=== PATIENT | female | born 1965 | race Two or more races ===

== ENCOUNTER 2017-01-22 14:56 | Inpatient (IN) | payer OTHER ==
[2017-01-22 15:41] VITALS: BMI 28.0
--- NOTE | 2017-01-22 15:50 | HP ---
CIWA Score - CIWA Score Nausea/Vomitin Muscle Tremors: 4-Moderate,w/Arms Extend Anxiety: 4-Mod. Anxious/Guarded Agitation: 4-Moderately Restless Paroxysmal Sweats: 3 Orientation: 0-Oriented Tacttile Disturbances: 2-Mild Itch/Numbness/Burn Auditory Disturbances: 0-None Visual Disturbances: 0-None Headache: 2-Mild CIWA-Ar Total Score: 21 Admission ROS BHS - HPI Chief Complaint: Withdrawal sx. Allergies/Adverse Reactions: Allergies Allergy/AdvReac Type Severity Reaction Status Date / Time No Known Allergies Allergy Verified 01/22/17 15:35 History of Present Illness: 52 y/o woman with a long hx. of alcoholism is admitted for detox.Pt. has been in previous detox,denies significant sobriety. She was here yesterday,however she did not bring her methadone take home bottle to verify dose.She decided to go back home and return today. Exam Limitations: No Limitations - Ebola screening Have you traveled outside of the country in the last 21 days: No Have you had contact with anyone from an Ebola affected area: No Have you been sick,other than usual withdrawal symptoms: No Do you have a fever: No - Review of Systems Constitutional: Diaphoresis EENT: reports: No Symptoms Reported Respiratory: reports: Cough Cardiac: reports: No Symptoms Reported GI: reports: Nausea, Abdominal cramping : reports: No Symptoms Reported Musculoskeletal: reports: Back Pain Integumentary: reports: Sweating Neuro: reports: Headache, Tingling, Tremors Endocrine: reports: No Symptoms Reported Hematology: reports: No Symptoms Reported Psychiatric: reports: No Sypmtoms Reported Other Systems: Reviewed and Negative Patient History - Patient Medical History Hx Anemia: Yes (in the past not taking any meds) Hx Asthma: Yes Hx Chronic Obstructive Pulmonary Disease (COPD): No Hx Cancer: No Hx Cardiac Disorders: Yes (HEART MURMUR) Hx Congestive Heart Failure: No Hx Hypertension: Yes (ON MEDS) Hx Hypercholesterolemia: No Hx Pacemaker: No HX Cerebrovascular Accident: Yes (LEFT SIDE/SLURRY SPEECH ) Hx Seizures: Yes (WITHDRAWAL SEIZURE) Hx Dementia: No Hx Diabetes: No Hx Gastrointestinal Disorders: No Hx Liver Disease: Yes (FATTY LIVER) Hx Genitourinary Disorders: No Hx Sexually Transmitted Disorders: Yes (SYPHILIS) Hx Renal Disease (ESRD): No Hx Thyroid Disease: No Hx Human Immunodeficiency Virus (HIV): No Hx Hepatitis C: No Hx Depression: Yes Hx Suicide Attempt: No Hx Bipolar Disorder: Yes (ON MEDS) Hx Schizophrenia: No - Patient Surgical History Past Surgical History: Yes Hx Neurologic Surgery: No Hx Cataract Extraction: No Hx Cardiac Surgery: No Hx Lung Surgery: No Hx Breast Surgery: No Hx Breast Biopsy: No Hx Abdominal Surgery: No Hx Appendectomy: No Hx Cholecystectomy: No Hx Genitourinary Surgery: No Hx Section: No Hx Orthopedic Surgery: No Other Surgical History: fibroid tumors in 08/2013 Anesthesia Reaction: No - PPD History Date: 05/17/16 Results: 0MM PPD to be Administered?: No - Reproductive History Patient is a Female of Child Bearing Age (11 -55 yrs old): Yes Patient : No - Smoking Cessation Smoking history: Current every day smoker Have you smoked in the past 12 months: Yes Aproximately how many cigarettes per day: 10 Cigars Per Day: 0 Hx Chewing Tobacco Use: No Initiated information on smoking cessation: Yes 'Breaking Loose' booklet given: 01/22/17 - Substance & Tx. History Hx Alcohol Use: Yes Hx Substance Use: Yes Substance Use Type: Alcohol, Prescribed (Methadone maintenance) Hx Substance Use Treatment: Yes (Detox) - Substances Abused Alcohol Route: Oral Frequency: Daily Amount used: Vodka 1 1/2 pint Age of first use: 13 Date of Last Use: 01/22/17 Family Disease History - Family Disease History Family Disease History: Diabetes: Grandparent (MATERNAL), Father (HTN/ ALCOHOLISM), Mother (OA), Other: Father, Mother, Brother ( [place]/ COCAINE) Admission Physical Exam [facility] - Vital Signs Vital Signs: Vital Signs - 24 hr 01/22/17 15:39 Temperature 98.9 F Pulse Rate 77 Respiratory 18 Rate Blood Pressure 148/97 - Physical General Appearance: Yes: Alcohol on Breath, Tremorous, Irritable, Sweating, Anxious HEENTM: Yes: Within Normal Limits Respiratory: Yes: Chest Non-Tender, Lungs Clear, Normal Breath Sounds Neck: Yes: Supple Breast: Yes: Breast Exam Deferred Cardiology: Yes: Regular Rhythm, Regular Rate, S1, S2, Systolic Murmur (soft 1/6 ) Abdominal: Yes: Normal Bowel Sounds, Non Tender, Soft Genitourinary: Yes: Within Normal Limits Back: Yes: Within Normal Limits Extremities: Yes: Tremors Neurological: Yes: Fully Oriented, Alert Integumentary: Yes: Diaphoresis Lymphatic: Yes: Within Normal Limits - Diagnostic (1) Alcohol dependence with uncomplicated withdrawal Current Visit: Yes Status: Acute (2) GERD (gastroesophageal reflux disease) Current Visit: Yes Status: Acute Qualifiers: Esophagitis presence: without esophagitis Qualified Code(s): K21.9 - Gastro-esophageal reflux disease without esophagitis (3) Asthma Current Visit: Yes Status: Chronic Qualifiers: Asthma severity: mild intermittent Asthma complication type: uncomplicated Qualified Code(s): J45.20 - Mild intermittent asthma, uncomplicated (4) Hypertension Current Visit: Yes Status: Chronic Qualifiers: Hypertension type: essential hypertension Qualified Code(s): I10 - Essential (primary) hypertension (5) Nicotine dependence Current Visit: Yes Status: Chronic Qualifiers: Nicotine product type: cigarettes Substance use status: uncomplicated Qualified Code(s): F17.210 - Nicotine dependence, cigarettes, uncomplicated (6) Opioid dependence on agonist therapy Current Visit: Yes Status: Chronic Cleared for Admission [facility] - Detox or Rehab [facility] Level of Care: Medically Managed Detox Regimen/Protocol: Librium [facility] Breath Alcohol Content Breath Alcohol Content: 0.292 Urine Pregancy Test - Result Urine Test Results: Negative- NO Line Present Urine Drug Screen - Results Drug Screen Negative: No Urine Drug Screen Results: MTD-Methadone, TCA-Tricyclic Antidepress
[2017-01-22] MEDS ORDERED: LOPERAMIDE HCL 2 MG CAPSULE PO PRN (16:02)
[2017-01-22] MEDS ORDERED: ACETAMINOPHEN 325 MG TABLET (FP) PO PRN (16:02)
[2017-01-22] MEDS ORDERED: chlordiazePOXIDE HCL 25 MG CAPSULE PO ONE (16:02)
[2017-01-22] MEDS ORDERED: MENTHOL/PHENOL 1 EACH UD MM PRN (16:02)
[2017-01-22] MEDS ORDERED: NICOTINE POLACRILEX 2 MG GUM BC PRN (16:02)
[2017-01-22] MEDS ORDERED: MAGNESIUM HYDROX 2400MG/30ML ORAL SUSPENSION 30 ML CUP PO PRN (16:02)
[2017-01-22] MEDS ORDERED: P-EPHED 60MG/TRIPROLIDI 2.5MG TABLET PO PRN (16:02)
[2017-01-22] MEDS ORDERED: chlordiazePOXIDE HCL 25 MG CAPSULE PO PRN (16:02)
[2017-01-22] MEDS ORDERED: MAG HYDROX/AL HYDROX/SIMETH 30 ML UNIT-DOSE CUP PO PRN (16:02)
[2017-01-22] MEDS ORDERED: guaiFENesin/D-METHORPHAN HB 10 ML UNIT-DOSE CUPS PO PRN (16:02)
[2017-01-22] MEDS ORDERED: MAGNESIUM CITRATE 300 ML BOTTLE PO PRN (16:02)
[2017-01-22] MEDS ORDERED: IBUPROFEN 400 MG TABLET (FP) PO PRN (16:02)
[2017-01-22] MEDS ORDERED: ALBUTEROL SO4 6.7 GM HFA INHALER IH PRN (16:05)
[2017-01-22] MEDS: NICOTINE 21 MG/24 HOURS TOPICAL PATCH TD SCH (17:02)
[2017-01-22] MEDS: amLODIPine BESYLATE 5 MG TABLET (FP) PO SCH (17:03)
[2017-01-22] MEDS: chlordiazePOXIDE HCL 25 MG CAPSULE PO SCH ×2 (17:09→22:37)
[2017-01-22] MEDS: diphenhydrAMINE HCL 50 MG CAPSULE PO PRN (22:37)
[2017-01-22] MEDS: THIAMINE HCL 100 MG TABLET (FP) PO SCH (22:37)
[2017-01-23] MEDS: diphenhydrAMINE HCL 50 MG CAPSULE PO PRN ×2 (01:16→22:20)
[2017-01-23] MEDS: chlordiazePOXIDE HCL 25 MG CAPSULE PO SCH ×4 (05:18→22:19)
[2017-01-23] MEDS ORDERED: METHADONE HCL 10 MG TABLET PO SCH (07:30)
[2017-01-23] MEDS: METHADONE 80 MG, METHADONE 20 MG PO SCH (07:43)
[2017-01-23] MEDS ORDERED: METHADONE HCL 40 MG DISPERSABLE TABLET ONE (07:43)
[2017-01-23] MEDS ORDERED: METHADONE HCL 10 MG TABLET ONE (07:43)
[2017-01-23] MEDS ORDERED: COLLOIDAL OATMEAL 1 BAR EACH TP PRN (09:08)
--- NOTE | 2017-01-23 09:20 | CONSULT ---
[facility] Psychiatric Consult - Data Date of interview: 01/23/17 Admission source: [facility] Identifying data: This is 52 years old female with psychiatric hospitalization history, history of Bipolar disorder, intoxicated with : Alcohol and Nicotine Substance Abuse History: - Smoking Cessation. Smoking history: Current every day smoker. Have you smoked in the past 12 months: Yes. Aproximately how many cigarettes per day: 10. Cigars Per Day: 0. Hx Chewing Tobacco Use: No. Initiated information on smoking cessation: Yes. 'Breaking Loose' booklet given : 01/22/17. - Substance & Tx. History. Hx Alcohol Use: Yes. Hx Substance Use : Yes. Substance Use Type: Alcohol, Prescribed (Methadone maintenance). Hx Substance Use Treatment: Yes (Detox). - Substances Abused. Alcohol. Route : Oral. Frequency: Daily. Amount used: Vodka 1 1/2 pint. Age of first use: 13. Date of Last Use: 01/22/17 Medical History: GERD, Asthma MMTP, MHTN, History of CVA, , Anemia history Psychiatric History: Patient reports history of Bipolar Disorder with most recent psychiatric admission on 2000 at [facility], reports being stable on: Zoloft 100mg poqd,. Seroquel 200mg po bid,. Ambien 10mg po qhs Physical/Sexual Abuse/Trauma History: Denies Additional Comment: Zoloft 100mg poqd,. Seroquel 200mg po bid,. Ambien 10mg po qhs Mental Status Exam - Mental Status Exam Alert and Oriented to: Person Cognitive Function: Fair Patient Appearance: Unkempt Mood: Sad Affect: Flat Patient Behavior: Sedated Speech Pattern: Delayed Voice Loudness: Mildly Soft/Quiet Thought Process: Goal Oriented Thought Disorder: Being Controlled Hallucinations: Denies Suicidal Ideation: Denies Homicidal Ideation: Denies Insight/Judgement: Fair Sleep: Difficulty falling asleep Appetite: Weight gain Muscle strength/Tone: Mild Hypotonicity Gait/Station: Shuffling Additional Comments: Zoloft 100mg poqd,. Seroquel 200mg po bid,. Ambien 10mg po qhs Psychiatric Findings - Problem List ([place] 1, 2,3) (1) Alcohol dependence with uncomplicated withdrawal Current Visit: Yes Status: Acute (2) Nicotine dependence Current Visit: Yes Status: Chronic Qualifiers: Nicotine product type: cigarettes Substance use status: uncomplicated Qualified Code(s): F17.210 - Nicotine dependence, cigarettes, uncomplicated (3) Opioid dependence on agonist therapy Current Visit: Yes Status: Chronic (4) Alcohol dependence Current Visit: No Status: Chronic Qualifiers: Substance use status: uncomplicated Qualified Code(s): F10.20 - Alcohol dependence, uncomplicated (5) Bipolar II disorder Current Visit: No Status: Chronic (6) Methadone maintenance therapy patient Current Visit: No Status: Chronic Comment: LAST DOSE 100 MG TAKE HOME DOSE 05/15/16. [facility] PH# (7) Substance induced mood disorder Current Visit: No Status: Chronic - Initial Treatment Plan Initial Treatment Plan: Zoloft 100mg poqd,. Seroquel 200mg po bid,. Ambien 10mg po qhs
[2017-01-23 09:50] LABS: MCH 36.2 pg (25.7-33.7); MCHC 34.4 g/dl (32.0-36.0); MEAN CELL VOLUME 105.1 fl (80-96); MEAN PLT VOLUME 8.7 fl (7.5-11.1); PLATELET COUNT 242 K/MM3 (134-434); RDW 14.2 % (11.6-15.6); WHITE BLOOD COUNT 5.5 K/mm3 (4.0-10.0)
--- NOTE | 2017-01-23 09:50 | PN ---
[facility] CIWA - CIWA Score Nausea/Vomitin-No Nausea/No Vomiting Muscle Tremors: 4-Moderate,w/Arms Extend Anxiety: 3 Agitation: 4-Moderately Restless Paroxysmal Sweats: 3 Orientation: 0-Oriented Tacttile Disturbances: 0-None Auditory Disturbances: 0-None Visual Disturbances: 0-None Headache: 1-Very Mild CIWA-Ar Total Score: 15 BHS Progress Note (SOAP) Subjective: sweats shakes interrupted sleep agitation body discomfort Objective: 01/23/17 09:48 Vital Signs Temperature 98.2 F 01/23/17 06:46 Pulse Rate 78 01/23/17 06:46 Respiratory Rate 18 01/23/17 06:46 Blood Pressure 140/90 01/23/17 06:46 O2 Sat by Pulse Oximetry (%) labs pending awake/alert ambulating bruising to upper lip with abrasion to area noted; pt states she fell at home bacitracin oint ordered Assessment: 01/23/17 09:49 withdrawal sx Plan: continue detox increase fluids bacitracin oint motrin 600mg prn aveeno soap as per pt request
[2017-01-23] MEDS: PRENATAL VITAMINS W/ FOLIC ACID TABLET (FP) PO SCH (10:29)
[2017-01-23] MEDS: NICOTINE 21 MG/24 HOURS TOPICAL PATCH TD SCH (10:29)
[2017-01-23] MEDS: LISINOPRIL 20 MG TABLET (FP) PO SCH (10:29)
[2017-01-23] MEDS: amLODIPine BESYLATE 5 MG TABLET (FP) PO SCH (10:29)
[2017-01-23 11:02] LABS: ALBUMIN 3.7 g/dl (3.4-5.0); ANION GAP 12 (8-16); CALCIUM 8.8 mg/dL (8.5-10.1); CO2 31 mmol/L (21-32); COCKROFT - GAULT 104.55; CREATININE 0.7 mg/dL (0.55-1.02); GLUCOSE,RANDOM 101 mg/dL (74-106); SGOT/AST 85 U/L (15-37); SGPT/ALT 39 U/L (12-78)
[2017-01-23 11:04] LABS: ALK PHOS 141 U/L (45-117); BILIRUBIN,TOTAL 0.6 mg/dL (0.2-1.0); TOT PROT 7.1 g/dl (6.4-8.2)
[2017-01-23] MEDS: SERTRALINE HCL 50 MG TABLET (FP) PO SCH (11:05)
[2017-01-23] MEDS: BACITRACIN 0.9 GM PACKET TP SCH ×2 (11:05→22:19)
[2017-01-23] MEDS: QUEtiapine FUMARATE 200 MG TABLET PO SCH ×2 (11:06→22:19)
--- NOTE | 2017-01-23 11:46 | EKG ---
Test Reason : Blood Pressure : / mmHG Vent. Rate : 079 BPM Atrial Rate : 079 BPM P-R Int : 188 ms QRS Dur : 068 ms QT Int : 418 ms P-R-T Axes : 064 038 048 degrees QTc Int : 479 ms NORMAL SINUS RHYTHM POSSIBLE LEFT ATRIAL ENLARGEMENT BORDERLINE ECG NO PREVIOUS ECGS AVAILABLE Confirmed by RONIT GOMEZ, CLOVIS ([id number]) on 01/23/2017 11:45:55 AM Referred By: Confirmed By:CLOVIS COTTRELL MD
[2017-01-23 14:31] LABS: URINE APPEARANCE CLEAR; URINE BILIRUBIN NEGATIVE (NEGATIVE); URINE BLOOD NEGATIVE (NEGATIVE); URINE COLOR STRAW; URINE GLUCOSE (UA) NEGATIVE (NEGATIVE); URINE KETONE NEGATIVE (NEGATIVE); URINE NITRITE NEGATIVE (NEGATIVE); URINE PROTEIN NEGATIVE (NEGATIVE); URINE UROBILINOGEN NEGATIVE E.U./dl (0.2-1.0)
[2017-01-23 15:17] LABS: URINE LEUK ESTERASE TRACE (NEGATIVE)
[2017-01-23 15:24] LABS: URINE MUCUS RARE; URINE WBC 3 /hpf (3-5)
[2017-01-23] MEDS: THIAMINE HCL 100 MG TABLET (FP) PO SCH (22:19)
[2017-01-24] MEDS ORDERED: METHADONE HCL 40 MG DISPERSABLE TABLET ONE (05:12)
[2017-01-24] MEDS ORDERED: METHADONE HCL 10 MG TABLET ONE (05:13)
[2017-01-24] MEDS: chlordiazePOXIDE HCL 25 MG CAPSULE PO SCH ×2 (05:59→10:24)
[2017-01-24] MEDS: METHADONE 80 MG, METHADONE 20 MG PO SCH (06:00)
[2017-01-24] MEDS: LISINOPRIL 20 MG TABLET (FP) PO SCH (10:24)
[2017-01-24] MEDS: QUEtiapine FUMARATE 200 MG TABLET PO SCH ×2 (10:24→22:27)
[2017-01-24] MEDS: amLODIPine BESYLATE 5 MG TABLET (FP) PO SCH (10:24)
[2017-01-24] MEDS: NICOTINE 21 MG/24 HOURS TOPICAL PATCH TD SCH (10:24)
[2017-01-24] MEDS: PRENATAL VITAMINS W/ FOLIC ACID TABLET (FP) PO SCH (10:24)
[2017-01-24] MEDS: BACITRACIN 0.9 GM PACKET TP SCH ×2 (10:24→22:27)
[2017-01-24] MEDS: SERTRALINE HCL 50 MG TABLET (FP) PO SCH (10:24)
--- NOTE | 2017-01-24 11:48 | PN ---
S CIWA - CIWA Score Nausea/Vomitin-No Nausea/No Vomiting Muscle Tremors: 4-Moderate,w/Arms Extend Anxiety: 3 Agitation: 4-Moderately Restless Paroxysmal Sweats: 3 Orientation: 0-Oriented Tacttile Disturbances: 0-None Auditory Disturbances: 0-None Visual Disturbances: 0-None Headache: 0-None Present CIWA-Ar Total Score: 14 BHS Progress Note (SOAP) Subjective: mild sweats low back pain feeling better Objective: 01/24/17 11:47 Vital Signs Temperature 98.1 F 01/24/17 10:51 Pulse Rate 90 01/24/17 10:51 Respiratory Rate 18 01/24/17 10:51 Blood Pressure 122/87 01/24/17 10:51 O2 Sat by Pulse Oximetry (%) Laboratory Tests 01/23/17 01/23/17 01/23/17 07:00 07:00 07:00 WBC 5.5 D RBC 3.56 L Hgb 12.9 D Hct 37.4 MCV 105.1 H MCHC 34.4 RDW 14.2 D Plt Count 242 D MPV 8.7 Sodium 140 Potassium 4.0 D Chloride 97 L D Carbon Dioxide 31 Anion Gap 12 BUN 10 Creatinine 0.7 Creat Clearance w eGFR > 60 Random Glucose 101 Calcium 8.8 Total Bilirubin 0.6 AST 85 H D ALT 39 Alkaline Phosphatase 141 H Total Protein 7.1 D Albumin 3.7 D Urine Color Urine Appearance Urine pH Ur Specific [place] Urine Protein Urine Glucose (UA) Urine Ketones Urine Blood Urine Nitrite Urine Bilirubin Urine Urobilinogen Ur Leukocyte Esterase Urine RBC Urine WBC Ur Epithelial Cells Urine Mucus RPR Titer Nonreactive D 01/23/17 09:45 WBC RBC Hgb Hct MCV MCHC RDW Plt Count MPV Sodium Potassium Chloride Carbon Dioxide Anion Gap BUN Creatinine Creat Clearance w eGFR Random Glucose Calcium Total Bilirubin AST ALT Alkaline Phosphatase Total Protein Albumin Urine Color Straw Urine Appearance Clear Urine pH 7.0 Ur Specific [place] 1.015 Urine Protein Negative Urine Glucose (UA) Negative Urine Ketones Negative Urine Blood Negative Urine Nitrite Negative Urine Bilirubin Negative Urine Urobilinogen Negative Ur Leukocyte Esterase Trace H Urine RBC None Urine WBC 3 Ur Epithelial Cells Rare Urine Mucus Rare RPR Titer awake/alert ambulating no acute distress Assessment: 01/24/17 11:48 withdrawal sx Plan: continue detox increase fluids lidocaine patch motrin/tylenol prn
[2017-01-24] MEDS: LIDOCAINE 5% TOPICAL PATCH TP SCH (12:36)
[2017-01-24] MEDS: chlordiazePOXIDE 5 MG CAPSULE PO SCH ×2 (17:06→22:27)
[2017-01-24] MEDS: IBUPROFEN 600 MG TABLET (FP) PO PRN (17:07)
[2017-01-24] MEDS: THIAMINE HCL 100 MG TABLET (FP) PO SCH (22:27)
[2017-01-24] MEDS: LIDOCAINE PATCH REMOVAL MC SCH (22:45)
[2017-01-25] MEDS: chlordiazePOXIDE 5 MG CAPSULE PO SCH ×2 (05:59→11:17)
[2017-01-25] MEDS ORDERED: METHADONE HCL 40 MG DISPERSABLE TABLET ONE (06:01)
[2017-01-25] MEDS: METHADONE 80 MG, METHADONE 20 MG PO SCH (06:02)
[2017-01-25] MEDS ORDERED: METHADONE HCL 10 MG TABLET ONE (06:02)
[2017-01-25] MEDS: IBUPROFEN 600 MG TABLET (FP) PO PRN ×2 (06:22→18:41)
[2017-01-25] MEDS: hydrOXYzine PAMOATE 50 MG CAPSULE (FP) PO PRN ×2 (09:16→18:41)
--- NOTE | 2017-01-25 10:52 | PN ---
BHS Progress Note (SOAP) Subjective: anxious Objective: 01/25/17 10:52 Vital Signs Temperature 98.2 F 01/25/17 10:11 Pulse Rate 104 H 01/25/17 10:11 Respiratory Rate 16 01/25/17 10:11 Blood Pressure 122/84 01/25/17 10:11 O2 Sat by Pulse Oximetry (%) awake/alert ambulating no acute distress Assessment: 01/25/17 10:52 mild withdrawal sx Plan: continue detox increase fluids d/c in am
[2017-01-25] MEDS: LISINOPRIL 20 MG TABLET (FP) PO SCH (11:17)
[2017-01-25] MEDS: QUEtiapine FUMARATE 200 MG TABLET PO SCH ×2 (11:18→22:42)
[2017-01-25] MEDS: BACITRACIN 0.9 GM PACKET TP SCH ×2 (11:18→22:41)
[2017-01-25] MEDS: PRENATAL VITAMINS W/ FOLIC ACID TABLET (FP) PO SCH (11:18)
[2017-01-25] MEDS: amLODIPine BESYLATE 5 MG TABLET (FP) PO SCH (11:18)
[2017-01-25] MEDS: SERTRALINE HCL 50 MG TABLET (FP) PO SCH (11:18)
[2017-01-25] MEDS: LIDOCAINE 5% TOPICAL PATCH TP SCH (11:19)
[2017-01-25] MEDS: NICOTINE 21 MG/24 HOURS TOPICAL PATCH TD SCH (11:24)
[2017-01-25] MEDS: chlordiazePOXIDE HCL 10 MG CAPSULE PO SCH ×2 (17:30→22:41)
[2017-01-25] MEDS: LIDOCAINE PATCH REMOVAL MC SCH (22:42)
[2017-01-25] MEDS: THIAMINE HCL 100 MG TABLET (FP) PO SCH (22:42)
[2017-01-26] MEDS ORDERED: METHADONE HCL 40 MG DISPERSABLE TABLET ONE (03:54)
[2017-01-26] MEDS ORDERED: METHADONE HCL 10 MG TABLET ONE (03:55)
[2017-01-26] MEDS: chlordiazePOXIDE HCL 10 MG CAPSULE PO SCH (05:39)
[2017-01-26] MEDS: METHADONE 80 MG, METHADONE 20 MG PO SCH (05:39)
--- NOTE | 2017-01-26 08:18 | DS ---
[facility] Detox Discharge Summary Admission Date: 01/22/17 Discharge Date: 01/26/17 - History Present History: Alcohol Dependence, MMTP - Physical Exam Results Vital Signs: Vital Signs Temperature 99.5 F 01/26/17 06:00 Pulse Rate 65 01/26/17 06:00 Respiratory Rate 18 01/26/17 06:00 Blood Pressure 130/79 01/26/17 06:00 O2 Sat by Pulse Oximetry (%) - Treatment Hospital Course: Detox Protocol Followed, Detoxed Safely, Responded well, Discharged Condition Good, Rehab Referral Accepted - Medication Discharge Medications: Ambulatory Orders Albuterol Sulfate Inhaler - [Ventolin HFA Inhaler -] 2 inh PO Q4H PRN #1 inh 06/04 Omeprazole [Prilosec] 40 mg PO DAILY 07/09/15 Quetiapine Fumarate [Seroquel -] 200 mg PO BID #60 tablet 07/10/15 Amlodipine Besylate [Norvasc -] 5 mg PO DAILY #30 tablet 05/19/16 Lisinopril [Prinivil] 20 mg PO DAILY #30 tablet 05/19/16 Sertraline HCl [Zoloft -] 100 mg PO DAILY #60 tablet 06/08/16 Alprazolam [Xanax] 2 mg PO BID 01/21/17 Methadone [Dolophine -] 100 mg PO DAILY 01/21/17 Quetiapine Fumarate [Seroquel -] 200 mg PO BID #60 tab 01/23/17 Sertraline HCl [Zoloft -] 100 mg PO DAILY #30 tablet 01/23/17 - Diagnosis (1) Alcohol dependence with uncomplicated withdrawal Current Visit: Yes Status: Chronic (2) GERD (gastroesophageal reflux disease) Current Visit: Yes Status: Chronic Qualifiers: Esophagitis presence: without esophagitis Qualified Code(s): K21.9 - Gastro-esophageal reflux disease without esophagitis (3) Asthma Current Visit: Yes Status: Chronic Qualifiers: Asthma severity: mild intermittent Asthma complication type: uncomplicated Qualified Code(s): J45.20 - Mild intermittent asthma, uncomplicated (4) Hypertension Current Visit: Yes Status: Chronic Qualifiers: Hypertension type: essential hypertension Qualified Code(s): I10 - Essential (primary) hypertension (5) Nicotine dependence Current Visit: Yes Status: Chronic Qualifiers: Nicotine product type: cigarettes Substance use status: uncomplicated Qualified Code(s): F17.210 - Nicotine dependence, cigarettes, uncomplicated (6) Opioid dependence on agonist therapy Current Visit: Yes Status: Chronic (7) Status post CVA Current Visit: No Status: Resolved (8) Bipolar II disorder Current Visit: No Status: Chronic (9) Methadone maintenance therapy patient Current Visit: Yes Status: Chronic (10) Substance induced mood disorder Current Visit: No Status: Chronic (11) Anemia Current Visit: No Status: Resolved Qualifiers: Anemia type: iron deficiency Iron deficiency anemia type: unspecified iron deficiency Qualified Code(s): D50.9 - Iron deficiency anemia, unspecified - AMA Did Patient Leave Against Medical Advice: No (d/c to home)
[2017-01-26] MEDS: PRENATAL VITAMINS W/ FOLIC ACID TABLET (FP) PO SCH (09:11)
[2017-01-26] MEDS: amLODIPine BESYLATE 5 MG TABLET (FP) PO SCH (09:11)
[2017-01-26] MEDS: QUEtiapine FUMARATE 200 MG TABLET PO SCH (09:11)
[2017-01-26] MEDS: SERTRALINE HCL 50 MG TABLET (FP) PO SCH (09:11)
[2017-01-26] MEDS: LISINOPRIL 20 MG TABLET (FP) PO SCH (09:11)
[2017-01-26 09:53] VITALS: BP 128/78; PULSE 86; TEMP 98.2
== END 2017-01-26 10:06 | disposition home or self-care (01) | DRG 773 ==
LOC: YASAS 14:56 → Y6N 15:48
PROVIDERS: ADMIT Internal Medicine; ATTEND Internal Medicine
PROC: HZ2ZZZZ Detoxification Services for Substance Abuse Treatment (ICD-10-PCS; principal; 2017-01-26)
DX: F11.20 Opioid dependence, uncomplicated (principal); F10.230 Alcohol dependence with withdrawal, uncomplicated; F17.213 Nicotine dependence, cigarettes, with withdrawal; F31.81 Bipolar II disorder; G40.509 Epileptic seizures related to external causes, not intractable, without status epilepticus; I10 Essential (primary) hypertension; J45.20 Mild intermittent asthma, uncomplicated; D50.9 Iron deficiency anemia, unspecified; K21.9 Gastro-esophageal reflux disease without esophagitis; I69.828 Other speech and language deficits following other cerebrovascular disease; I69.854 Hemiplegia and hemiparesis following other cerebrovascular disease affecting left non-dominant side
CPT/HCPCS: 36415; 80053; 81003; 81015; 85027; 86593; 93005; 93010

== ENCOUNTER 2019-03-29 13:45 | Inpatient (IN) | payer OTHER | END 2019-04-02 10:00 | disposition home or self-care (01) | LOC: YASAS 13:45 → Y6N 19:30 ==